=== PATIENT | female | born 1975 | race African-American/Black ===

== ENCOUNTER 2019-05-05 17:42 | Emergency (ER) | payer SELFPAY ==
[~2019-05-05] VITALS: Ht 172.7 cm; Wt 95.0 kg
[2019-05-05] MEDS ORDERED: KETOROLAC 30MG/ML VIAL IV ONE (21:45)
[2019-05-05] MEDS ORDERED: SODIUM CHLORIDE 0.9% 500 ML IV ONE (21:45)
[2019-05-05 23:36] LABS: CHLORIDE 111 mEq/L (98-107)
[2019-05-05 23:38] LABS: HCG SCREEN NEGATIVE
[2019-05-05 23:58] LABS: HEMATOCRIT 42.3 % (36.0-48.0); HEMOGLOBIN 14.3 g/dL (12.0-16.0); MEAN CORPUSCULAR HEMOGLOBIN 30.6 pg (28.0-32.0); MEAN CORPUSCULAR VOLUME 90.4 fL (81.0-99.0); PLATELET 162 x1000/uL (130-400); RED BLOOD CELL COUNT 4.68 mill/uL (4.2-5.4); RED CELL DISTRIBUTION WIDTH 13.5 % (11.6-14.6)
[2019-05-06] MEDS ORDERED: PREDNISONE 20MG TABLET PO STA (00:42)
[2019-05-06] MEDS ORDERED: ALBUTEROL (0.083%) 2.5MG/3ML NEB HHN STA (00:42)
[2019-05-06] MEDS ORDERED: IPRATROPIUM BROMIDE (0.02%) 0.5MG/2.5ML NEB HHN STA (00:42)
[2019-05-06 01:00] VITALS: BP 144/83
[2019-05-06] MEDS ORDERED: PREDNISONE 20MG TABLET PO ONE (01:00)
== END 2019-05-06 02:07 | disposition home or self-care (01) ==
LOC: EEVIPCON 18:03 → ER 18:03
DX: J06.9 Acute upper respiratory infection, unspecified (principal); R06.00 Dyspnea, unspecified; J45.909 Unspecified asthma, uncomplicated
CPT/HCPCS: 36415; 71045; 80053; 81025; 84484; 84703; 85027; 87420; 87804; 96374; 99285; J1885; J7040; J7512; Z7610

== ENCOUNTER 2020-10-16 16:51 | Emergency (ER) | payer MEDICAID ==
[~2020-10-16] VITALS: Ht 175.3 cm; Wt 99.0 kg
[2020-10-16] MEDS ORDERED: ACETAMINOPHEN 325MG TABLET PO STA (17:14)
[2020-10-16] MEDS ORDERED: SODIUM CHLORIDE 0.9% 1,000 ML IV ONE (17:15)
[2020-10-16 17:43] LABS: BASOPHILS % 0.2 % (0.0-2.0); EOSINOPHILS % 0.2 % (0.0-5.0); HEMATOCRIT. 37.2 % (36.0-48.0); LYMPHOCYTES % 7.2 % (20.0-50.0); MEAN CORPUSCULAR HEMOGLOBIN 25.8 pg (28.0-32.0); MEAN CORPUSCULAR VOLUME 79.7 fL (81.0-99.0); MEAN PLATELET VOLUME 7.6 fl (7.4-10.4); MONOCYTES % 3.7 % (2.0-8.0); NEUTROPHILS % 88.7 % (40.0-76.0); PLATELET 239 x1000/uL (130-400); RED BLOOD CELL COUNT 4.66 mill/uL (4.2-5.4); RED CELL DISTRIBUTION WIDTH 14.1 % (11.6-14.6)
[2020-10-16 17:49] LABS: CHLORIDE 104 mEq/L (98-107)
[2020-10-16 17:52] LABS: PROTHROMBIN TIME 10.9 sec (9.6-11.0)
[2020-10-16 18:17] LABS: CLARITY URINE CLEAR (CLEAR); COLOR URINE YELLOW (YELLOW); KETONES URINE NEGATIVE (NEGATIVE); LEUKOCYTE ESTERASE URINE NEGATIVE (NEGATIVE); NITRITE URINE NEGATIVE (NEGATIVE); OCCULT BLOOD URINE 1+ (NEGATIVE); PH URINE 7.5 (4.5-8.0); PROTEIN URINE NEGATIVE (NEGATIVE); SPECIFIC GRAVITY URINE 1.014 (1.005-1.030); UROBILINOGEN URINE 0.2 E.U./dL (0.2-1.0)
[2020-10-16] MEDS ORDERED: POTASSIUM CHLORIDE 20MEQ TABLET SR PO ONE (20:45)
[2020-10-16 21:15] VITALS: BP 134/86
== END 2020-10-16 21:50 | disposition home or self-care (01) ==
LOC: EEVIPCON 16:51 → ER 17:13 → CANBEDREQ 10-17 16:31
DX: L76.82 Other postprocedural complications of skin and subcutaneous tissue (principal); L03.311 Cellulitis of abdominal wall; J45.909 Unspecified asthma, uncomplicated; Z98.890 Other specified postprocedural states; Y83.8 Other surgical procedures as the cause of abnormal reaction of the patient, or of later complication, without mention of misadventure at the time of the procedure; Y92.018 Other place in single-family (private) house as the place of occurrence of the external cause
CPT/HCPCS: 36415; 71045; 76705; 80053; 81003; 81025; 83605; 85025; 85610; 87040; 93005; 96360; 96361; 99285; J7030